=== PATIENT | male | born 1950 | race Caucasian/White ===

== ENCOUNTER 2018-01-28 11:46 | Emergency (ER) | payer MEDICARE ==
[~2018-01-28] VITALS: Ht 175.3 cm; Wt 115.6 kg
[2018-01-28] MEDS ORDERED: SODIUM CHLORIDE FLUSH 10ML SYR IVF ONE (12:30)
[2018-01-28] MEDS ORDERED: HYDROcodone/APAP 5/325 TABLET ONE (12:45)
[2018-01-28] MEDS ORDERED: LIDOCAINE-MPF 1%, 5ML ONE (12:50)
[2018-01-28] MEDS ORDERED: HYDROcodone/APAP 5/325 TABLET PO ONE (13:00)
[2018-01-28] MEDS ORDERED: LIDOCAINE 1%, 10ML INFIL ONE (13:00)
[2018-01-28] MEDS ORDERED: BACITRACIN ZINC OINT 500U/GM, 0.9 GM ONE (13:38)
[2018-01-28 14:42] VITALS: BP 118/73
== END 2018-01-28 14:44 | disposition home or self-care (01) ==
LOC: ED 14:38
DX: S43.005A Unspecified dislocation of left shoulder joint, initial encounter (principal); S91.312A Laceration without foreign body, left foot, initial encounter; W01.0XXA Fall on same level from slipping, tripping and stumbling without subsequent striking against object, initial encounter; Y93.89 Activity, other specified; Y92.009 Unspecified place in unspecified non-institutional (private) residence as the place of occurrence of the external cause; Y99.8 Other external cause status
CPT/HCPCS: 12041; 23650; 99284

== ENCOUNTER → 2018-03-03 | Outpatient (CLI) | payer MEDICARE | END | disposition home or self-care (01) | LOC: CFH 12:22 | PROVIDERS: ATTEND Orthopaedic Surgery | DX: S46.012A Strain of muscle(s) and tendon(s) of the rotator cuff of left shoulder, initial encounter (principal); M19.012 Primary osteoarthritis, left shoulder; X58.XXXA Exposure to other specified factors, initial encounter; Y93.89 Activity, other specified; Y92.89 Other specified places as the place of occurrence of the external cause; Y99.8 Other external cause status ==

== ENCOUNTER → 2018-04-19 | Outpatient (CLI) | payer MEDICARE ==
[~2018-04-19] MED LIST: OMNIPAQUE 350 MG/ML, 100ML BOTTLE ONE
== END | disposition home or self-care (01) ==
LOC: RAD 12:34
PROVIDERS: ATTEND Nurse Practitioner Family
DX: I71.2 Thoracic aortic aneurysm, without rupture (principal); K76.0 Fatty (change of) liver, not elsewhere classified
CPT/HCPCS: 71275; Q9967

== ENCOUNTER 2018-05-17 13:35 | Outpatient (CLI) | payer MEDICARE ==
[2018-05-17] MEDS ORDERED: ALLO300T PO (14:39)
[2018-05-17] MEDS ORDERED: AMLO1CAP14 PO (14:39)
[2018-05-17] MEDS ORDERED: CARV6.2512 PO (14:39)
[2018-05-17] MEDS ORDERED: METF500T17 PO (14:39)
[2018-05-17] MEDS ORDERED: PANT40TA3 PO (14:39)
[2018-05-17] MEDS ORDERED: TAMS-11 PO (14:39)
== END 2018-05-17 23:59 | disposition home or self-care (01) ==
LOC: STAR 13:35
PROVIDERS: ATTEND Orthopaedic Surgery
DX: M19.112 Post-traumatic osteoarthritis, left shoulder (principal)
CPT/HCPCS: 87081; 93005

== ENCOUNTER → 2018-09-19 | Outpatient (CLI) | payer MEDICARE ==
[~2018-09-19] MED LIST changes: +ALLO300T PO; +AMLO1CAP14 PO; +CARV6.2512 PO; +METF500T17 PO; -OMNIPAQUE 350 MG/ML, 100ML BOTTLE ONE; +PANT40TA3 PO; +TAMS-11 PO
== END | disposition home or self-care (01) ==
LOC: CVU 09:37
PROVIDERS: ATTEND Internal Medicine Cardiovascular Disease
DX: I71.2 Thoracic aortic aneurysm, without rupture (principal); I35.1 Nonrheumatic aortic (valve) insufficiency
CPT/HCPCS: 93306; 93978

== ENCOUNTER 2019-10-02 08:23 | Outpatient (CLI) | payer MEDICARE ==
[~2019-10-02 08:23] MED LIST changes: -AMLO1CAP14 PO; +AMLO1CAP53 PO
== END 2019-10-02 23:59 | disposition home or self-care (01) ==
LOC: CVU 08:23
PROVIDERS: ATTEND Internal Medicine Cardiovascular Disease
DX: I08.0 Rheumatic disorders of both mitral and aortic valves (principal); I71.2 Thoracic aortic aneurysm, without rupture; I10 Essential (primary) hypertension; E78.5 Hyperlipidemia, unspecified; E11.9 Type 2 diabetes mellitus without complications
CPT/HCPCS: 93306

== ENCOUNTER → 2020-07-18 | Outpatient (CLI) | payer MEDICARE | END | disposition home or self-care (01) | LOC: CVU 12:34 | PROVIDERS: ATTEND Internal Medicine Cardiovascular Disease | DX: I08.2 Rheumatic disorders of both aortic and tricuspid valves (principal); I10 Essential (primary) hypertension; E78.5 Hyperlipidemia, unspecified; I71.2 Thoracic aortic aneurysm, without rupture | CPT/HCPCS: 93306; 93356 ==